=== PATIENT | female | born 1985 | race Caucasian/White ===

== ENCOUNTER 2018-04-10 15:01 | Emergency (ER) | payer MEDICAID, SELFPAY ==
[2018-04-10] VITALS (7 sets, daily range): BP systolic 149; BP diastolic 99; PULSE 134; RESP 16–20; TEMP 36.6; O2SAT 97–98; BMI 17.6
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
[2018-04-10 16:07] LABS: Absolute Lymphocyte Count 2.36 X10^3/ul (0.83-4.51); Absolute Neutrophil Count 6.1 X10^3/uL (2.0-7.7); Basophil# 0.02 X10^3/uL; Basophil% 0.2 % (0-1); Eosinophil# 0.19 X10^3/uL; Eosinophils% 2.1 % (0-5); Hematocrit 37.8 % (37-47); Hemoglobin 12.3 g/dl (12.0-15.0); Lymphocyte # 2.36 X10^3/ul (4.0); Lymphocyte % 25.8 % (19-41); Mean Corp Hgb Conc 32.5 g/gl (32-36); Mean Corpuscular Hgb 31.2 pg (27.0-32.0); Mean Corpuscular Volume 95.9 fL (81-99); Mean Platelet Vol. 8.7 fl (6.2-12.0); Monocyte# 0.46 X10^3/uL; Neutrophil # 6.12 X10^3/uL (2.7-7.7); Neutrophil % 66.8 % (47-70); Platelet Count 252 K/mm3 (150-450); RBC Distribution Width CV 13.4 % (11.6-14.6); RBC Distribution Width SD 47.2 fl (35.1-43.9); Red Blood Count 3.94 M/mm3 (4.2-5.4); White Blood Count 9.2 K/mm3 (4.4-11.0)
[2018-04-10 16:16] LABS: ALB/GLOB Ratio 0.9 RATIO (0.9-2.4); AST(SGOT) 15 U/L (15-37); Alanine Aminotransfer ALT/SGPT 25 U/L (13-56); Albumin, Serum 3.2 g/dL (3.2-5.0); Alkaline Phosphatase 60 U/L (45-117); Anion Gap 9 (5-15); BUN 4 mg/dL (7-18); BUN/Creat Ratio 6.8 RATIO (10-20); Calcium,Total 8.2 mg/dL (8.5-10.1); Chloride 107 mmol/L (98-107); Creatinine, Serum 0.59 mg/dL (0.55-1.02); EST Glomerular Filtration Rate 123 mL/min (>60); Est Glom Filt Rate - Afr Amer 149 mL/min (>60); Estimated Creatinine Clearance 111.99 ml/min; Globulin 3.4 g/dL (2.2-4.2); Glucose 118 mg/dL (74-106); Potassium 3.5 mmol/L (3.5-5.1); Protein, Total 6.6 g/dL (6.4-8.2); Sodium Level 143 mmol/L (136-145)
[2018-04-10 16:21] LABS: Pregnancy, Serum, hCG Quali. NEGATIVE Negative (0-9 Nonpreg)
[2018-04-10 16:25] LABS: Differential Comment SCANNED; Differential Indicated SCAN CRITERIA MET; POSITIVE COUNT NO; POSITIVE DIFFERENTIAL NO; POSITIVE MORPHOLOGY YES
[2018-04-10 16:28] LABS: Alcohol, Blood (Medical)-Serum < 3.0 mg/dL
[2018-04-10 17:07] LABS: Amphetamine Urine VISTA POSITIVE (<1000 ng/mL); Barbiturate Urine VISTA NEGATIVE (< 200 ng/mL); Benzodiazepine Urine VISTA NEGATIVE (< 200 ng/mL); Cocaine Urine VISTA NEGATIVE (< 300 ng/mL); Ecstacy Urine VISTA NEGATIVE (< 500 ng/mL); Methadone Urine VISTA NEGATIVE (< 300 ng/mL); PCP Urine VISTA NEGATIVE (< 25 ng/mL); THC Urine VISTA POSITIVE (< 50 ng/mL); Vista UDS pH Range 6
--- NOTE | 2018-04-10 17:20 | ED.RN ---
ADITI WITH CRISIS CALLED AND IS TAKING CARE OF ANOTHER SITUATION AND THEN WILL BE HERE
[2018-04-11 00:48] VITALS: BP 105/69; PULSE 69; RESP 14; O2SAT 100
[2018-04-11 01:47] VITALS: RESP 16; O2SAT 98
[2018-04-11 03:10] VITALS: RESP 17
[2018-04-11 05:15] VITALS: RESP 16
--- NOTE | 2018-04-11 06:02 | ED.RN ---
B[facility] WILL BE HERE AT [id number]
[2018-04-11 06:19] VITALS: BP 104/76; PULSE 80; RESP 15; TEMP 36.6; O2SAT 98
[2018-04-11 08:00] VITALS: BP 130/71; PULSE 90; RESP 16; O2SAT 100
--- NOTE | 2018-04-11 08:18 | ED.RN ---
PT REPORTS THAT NO ONE TOLD HER WHAT WAS GOING ON. EXPLAINED TO PT DUE TO THE WYIGH RISK OF HER STATMENTS AND FEELING OF HURTING SELF THAT SHE WAS TO BE PLACED IN [place]. RIDE PRESENT TO TRANSPORT EXPLAINING TO PT. PT ANXIOUS AND IRRITABLE, REFUSING ATIVAN BUT ABLE TO VERBALLY CALM PT AND PT GOT LEFT WITH EMS RELUCTANT BUT CALM.
== END 2018-04-11 08:20 ==
LOC: ED 15:51
PROVIDERS: Emergency Provider Emergency Medicine
DX: R45.851 Suicidal ideations (principal); F32.9 Major depressive disorder, single episode, unspecified; Z72.0 Tobacco use; F12.10 Cannabis abuse, uncomplicated
CPT/HCPCS: 80053; 80307; 80320; 84703; 85025; 93005; 99284; G0480

== ENCOUNTER 2018-10-30 10:58 | Emergency (ER) | payer MEDICAID, SELFPAY ==
[2018-10-30 11:01] VITALS: BP 109/76; PULSE 89; RESP 16; TEMP 36.8; O2SAT 98; BMI 19.1
--- NOTE | 2018-10-30 12:31 | RAD_ITS ---
STUDY: X-RAY - RIGHT FOOT CLINICAL: Female, 33 years old. Heel pain. TECHNIQUE: 3 view(s) of the foot. COMPARISON: None. FINDINGS: Normal talus, calcaneus, and tarsal bones. Normal visualized subtalar, talonavicular, calcaneocuboid, tarsal and tarsometatarsal articulations. Normal metatarsi. Normal metatarsophalangeal joint of the great toe. Normal tibial and fibular sesamoid bones. Normal interphalangeal joint of the great toe. Normal phalanges of the great toe. Normal second through fifth metatarsophalangeal joints. Normal interphalangeal joints and phalanges of the lesser toes. The soft tissue structures are unremarkable. RAD/Foot min 3 Views IMPRESSION: Normal x-ray examination of the foot. Electronically Signed: Vamsi Medeiros, at 12:48 EDT , Service support ,
--- NOTE | 2018-10-30 13:36 | ED.VIS.GEN ---
History of Present Illness Chief Complaint: Lower Extremity Injury Informant: Patient Onset: Today Context: Sudden Onset Timing: Continuous Current Severity: Moderate Maximum Severity: Severe Worsened by: walking, palpation Relieved by: rest Narrative: Patient states this morning she was throwing a temper tantrum and smacked her heel onto a carpeted floor with hardwood underneath very hard. Since then her right heel has hurt and she has difficulty walking although she is able to do so. She is a smoker. Past Medical History - Allergies and Home Meds Allergies/Adverse Reactions: Allergies Penicillins [PCN] Allergy (Verified 10/30/18 11:00) Anaphylaxis Primary Care Physician: Care Physician,No Primary [Primary Care Provider] - Past Medical History: None Smoking Status: Current every day smoker Review of Systems Musculoskeletal: Reports: Extremity Pain. Denies: Back pain, Swelling Skin: Denies: Abrasions, Wounds Physical Exam Vital Signs/Narrative: Vital Signs Temp Pulse Resp BP Pulse Ox 10/30/18 11:01 98.2 F 89 16 109/76 98 Inital Vital Signs reviewed: Yes General: Well nourished, Well developed, No Acute Distress Head: Normocephalic, Atraumatic Extremities: No edema, Tenderness - Right calcaneus. Midfoot, Achilles, ankle all nontender. Normal Achilles function. Neurovascularly intact distally. Skin: Normal color, No rash, No Trauma Neurological: Alert, Oriented x3, Cranial nerves II-XII grossly intact, Normal Strength, Normal Sensation Psychological: Normal affect, Normal Mood Diagnostic/Tx/Re-eval Clinical Impression(s) from Imaging Studies Foot X-Ray 10/30/18 12:31 IMPRESSION: Normal x-ray examination of the foot. Electronically Signed: Vamsi Medeiros, at 12:48 EDT , Service support , - Medical Decision Making Reassured, negative x-ray. Given a postop shoe as needed for comfort and ibuprofen. ED Disposition - Plan for ED Patient: Disposition: Home or Assisted Living Diagnosis: Contusion of foot, right Instructions: ED Contusion Foot Referrals: Ariana Simmons [NON-STAFF] - 1 Week if not improving Additional Instructions: Tylenol, ibuprofen, and/or ice as needed for discomfort. Use postop shoe as much as you need.
--- NOTE | 2018-10-30 13:40 | ED.DCSUM_ITS ---
History of Present Illness Chief Complaint: Lower Extremity Injury Informant: Patient Onset: Today Context: Sudden Onset Timing: Continuous Current Severity: Moderate Maximum Severity: Severe Worsened by: walking, palpation Relieved by: rest Narrative: Patient states this morning she was throwing a temper tantrum and smacked her heel onto a carpeted floor with hardwood underneath very hard. Since then her right heel has hurt and she has difficulty walking although she is able to do so. She is a smoker. Past Medical History - Allergies and Home Meds Allergies/Adverse Reactions: Allergies Penicillins [PCN] Allergy (Verified 10/30/18 11:00) Anaphylaxis Primary Care Physician: Care Physician,No Primary [Primary Care Provider] - Past Medical History: None Smoking Status: Current every day smoker Review of Systems Musculoskeletal: Reports: Extremity Pain. Denies: Back pain, Swelling Skin: Denies: Abrasions, Wounds Physical Exam Vital Signs/Narrative: Vital Signs Temp Pulse Resp BP Pulse Ox 10/30/18 11:01 98.2 F 89 16 109/76 98 Inital Vital Signs reviewed: Yes General: Well nourished, Well developed, No Acute Distress Head: Normocephalic, Atraumatic Extremities: No edema, Tenderness - Right calcaneus. Midfoot, Achilles, ankle all nontender. Normal Achilles function. Neurovascularly intact distally. Skin: Normal color, No rash, No Trauma Neurological: Alert, Oriented x3, Cranial nerves II-XII grossly intact, Normal Strength, Normal Sensation Psychological: Normal affect, Normal Mood Diagnostic/Tx/Re-eval Clinical Impression(s) from Imaging Studies Foot X-Ray 10/30/18 12:31 IMPRESSION: Normal x-ray examination of the foot. Electronically Signed: Vamsi Medeiros, at 12:48 EDT , Service support , - Medical Decision Making Reassured, negative x-ray. Given a postop shoe as needed for comfort and ibuprofen. ED Disposition - Plan for ED Patient: Disposition: Home or Assisted Living Diagnosis: Contusion of foot, right Instructions: ED Contusion Foot Referrals: Ariana Simmons [NON-STAFF] - 1 Week if not improving Additional Instructions: Tylenol, ibuprofen, and/or ice as needed for discomfort. Use postop shoe as much as you need.
[2018-10-30] MEDS: Ibuprofen 600 MG Tablet PO (13:59)
== END 2018-10-30 14:01 | disposition home or self-care (01) ==
PROVIDERS: Emergency Provider Emergency Medicine
DX: S90.31XA Contusion of right foot, initial encounter (principal); W18.30XA Fall on same level, unspecified, initial encounter; Y93.89 Activity, other specified; Y92.89 Other specified places as the place of occurrence of the external cause; Y99.9 Unspecified external cause status; F17.200 Nicotine dependence, unspecified, uncomplicated
CPT/HCPCS: 73630; 99283

== ENCOUNTER 2021-02-20 11:10 | Emergency (ER) | payer MEDICAID, SELFPAY ==
[2021-02-20 11:12] VITALS: BP 117/82; PULSE 109; RESP 17; TEMP 36.9; O2SAT 100; BMI 17.2
--- NOTE | 2021-02-20 11:23 | EDS_ITS ---
HPI History of Present Illness Chief Complaint: Abscess Informant: patient Narrative Narrative: 35-year-old female presents to the emergency room for evaluation of abscess. Symptoms began about 1 week ago and she was taking care of it about 3 days ago opened up and drained. She states has been very uncomfortable. She has had prior cutaneous abscess as well as Bartholin abscesses. She notes that this is inferior and lateral to her labia. No fevers but she feels a headache. She notes that she is currently staying at the [facility]. She states that she does not need to speak with social work as she has a major case detective. She is waiting for her vouchers to come through. PFSH PFSH Home Medications cephalexin 500 mg PO Q6 #40 capsule 02/20/21 [Rx Last Taken Unknown] hydrocodone-acetaminophen 1 tab PO Q6H PRN PRN 3 Days #12 tablet 02/20/21 [Rx Last Taken Unknown] sulfamethoxazole-trimethoprim 1 tab PO BID #20 tablet 02/20/21 [Rx Last Taken Unknown] Allergy/AdvReac Type Severity Reaction Status Date / Time Penicillins [PCN] Allergy Anaphylaxis Verified 02/20/21 11:11 Social History (Updated 02/20/21 @ 11:[address] Han Villatoro, DO) housing: homeless Smoking Status: Current every day smoker ROS ROS ED Constitutional Constitutional ED: Denies chills or weight loss Eyes Eyes: Denies change in vision or diplopia ENT ENT ED: Denies ear pain, rhinorrhea or sore throat Cardiovascular Cardiovascular: Denies chest pain, orthopnea, palpitations or racing heartbeat Respiratory/Chest Respiratory/Chest: Denies cough, dyspnea or orthopnea Gastrointestinal Gastrointestinal: Denies abdominal pain, diarrhea, nausea or vomiting Genitourinary Genitourinary ED: Denies dysuria, hematuria or urinary frequency Musculoskeletal Musculoskeletal: Denies arthralgias or myalgias Integumentary Reports abscess; Denies rash Neurologic Neurologic: Denies headache(s) or weakness Psychiatric Psychiatric: Denies anxiety, depression, suicidal ideation or suicidal thoughts Endocrine Endocrinology: Denies polydipsia, polyphagia or polyuria Allergic/Immunologic Allergic/Immunologic ED: Denies mouth swelling, tongue swelling or urticaria EXAM Physical Exam Const Vital Signs: 02/20/21 11:12 Temperature 98.5 F Temperature Source Temporal Pulse Rate 109 H Respiratory Rate 17 Blood Pressure 117/82 H Blood Pressure Mean 93 Pulse Ox 100 Oxygen Delivery Method Room Air Positive well nourished and well developed General Appearance ED: well developed HEENT Reports normocephalic, head/scalp atraumatic and moist mucous membranes Eyes PERRL and EOMs intact bilaterally Neck no lymphadenopathy, supple and no JVD Resp normal respiratory effort and clear to auscultation bilaterally Cardio regular rate, regular rhythm and no murmurs GI normal to inspection, nondistended, normoactive bowel sounds and non-tender Palpation: soft Back/Spine no CVA tenderness and normal ROM Extremity normal to inspection General Extremety ED: Negative for edema General Extremity: Negative for edema Neuro oriented x3 and CN's II-XII intact bilaterally Sensorium / Orientation: alert Motor Exam: strength 5/5 throughout Psych mental status grossly normal Mood & Affect: Negative for depressed or tearful Skin Skin Narrative: Located inferior and lateral to the right labia is a area of indurated skin with a 0.75 cm laceration that appears to have recently drained an abscess. There is mild erythema. MDM MDM MDM Narrative Medical decision making narrative: Patient be started on Bactrim and Keflex. I can write for a few [place] for pain. We talked about warm moist heat as she does not have access to a bath at the current time. At this point I do not see anything obvious that we need to drain. Patient is comfortable with this plan. Discharge Plan Triage Chief Complaint: Abscess ED Provider: Han Villatoro Dx/Rx/DC Orders Clinical Impression: Perineal abscess Instructions: ED Abscess Antibiotic Treatment Only Prescriptions: New hydrocodone-acetaminophen [hydrocodone-acetaminophen] 1 TABLET tablet 1 tab PO Q6H PRN PRN (Reason: Pain) 3 Days Qty: 12 RF: 0 sulfamethoxazole-trimethoprim [sulfamethoxazole-trimethoprim] 1 TABLET tablet 1 tab PO BID Qty: 20 RF: 0 cephalexin [cephalexin] 500 MG capsule 500 mg PO Q6 Qty: 40 RF: 0 Primary Care Provider: Care Physician,No Primary Referrals: Crystal Ross MD [STAFF PHYSICIAN] - As Needed (for abscess care if not improving ) Care Physician,No Primary [Primary Care Provider] - Disposition Disposition: Home, Self Care
== END 2021-02-20 11:33 | disposition home or self-care (01) ==
LOC: ED 11:31
PROVIDERS: Emergency Provider Emergency Medicine
DX: L02.215 Cutaneous abscess of perineum (principal); F17.200 Nicotine dependence, unspecified, uncomplicated
CPT/HCPCS: 99282